=== PATIENT | male | born 1965 | race Caucasian/White ===

== ENCOUNTER 2019-07-07 16:11 | Inpatient (IN) | payer OTHER ==
[~2019-07-07] VITALS: Ht 172.7 cm; Wt 108.9 kg
[2019-07-07] MEDS ORDERED: LOSARTAN POTAS100 MG (16:31)
[2019-07-07] MEDS ORDERED: CRESTOR10 MG (16:31)
[2019-07-07] MEDS ORDERED: NORVASC5 MG (16:31)
[2019-07-11] MEDS ORDERED: BACTRIM DS TAB1 EACH PO (09:16)
== END 2019-07-11 14:47 | disposition home or self-care (01) | DRG 348 ==
LOC: ER 16:11 → MEDJ 18:27
PROVIDERS: Surgery; ADMIT Internal Medicine
PROC: 8E0ZXY6 Isolation (ICD-10-PCS; 2019-07-08)
PROC: 0Y910ZZ Drainage of Left Buttock, Open Approach (ICD-10-PCS; 2019-07-10)
PROC: 3E0T3BZ Introduction of Anesthetic Agent into Peripheral Nerves and Plexi, Percutaneous Approach (ICD-10-PCS; 2019-07-10)
PROC: 0D9Q0ZZ Drainage of Anus, Open Approach (ICD-10-PCS; principal; 2019-07-10 15:45)
DX: K61.2 Anorectal abscess (principal); L02.31 Cutaneous abscess of buttock; K61.39 Other ischiorectal abscess; B95.62 Methicillin resistant Staphylococcus aureus infection as the cause of diseases classified elsewhere; B95.61 Methicillin susceptible Staphylococcus aureus infection as the cause of diseases classified elsewhere; B96.29 Other Escherichia coli [E. coli] as the cause of diseases classified elsewhere; B96.4 Proteus (mirabilis) (morganii) as the cause of diseases classified elsewhere